=== PATIENT | female | born 1990 | race African-American/Black ===

== ENCOUNTER → 2022-05-22 08:02 | Outpatient (BNVA) | payer OTHER, SELFPAY | PROVIDERS: PCP Internal Medicine; Referring Provider Internal Medicine; Visit Provider Physician Assistant Surgical ==

== ENCOUNTER 2022-11-13 13:43 | Outpatient (AMB) | payer OTHER, SELFPAY ==
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
[2022-11-13 13:49] VITALS: BP 130/82; PULSE 87; BMI 37.8
== END 2022-11-13 14:47 | disposition home or self-care (01) ==
PROVIDERS: PCP Internal Medicine; Visit Provider Nurse Practitioner Family
DX: R51.9 Headache, unspecified (principal); Z82.49 Family history of ischemic heart disease and other diseases of the circulatory system; G43.009 Migraine without aura, not intractable, without status migrainosus
CPT/HCPCS: 99204

== ENCOUNTER → 2022-11-13 13:43 | Outpatient (BNVA) | payer OTHER, SELFPAY | PROVIDERS: PCP Internal Medicine; Visit Provider Nurse Practitioner Family ==

== ENCOUNTER 2023-01-10 08:19 | Outpatient (REF) | payer OTHER, SELFPAY ==
--- NOTE | ~2023-01-10 | MR_ITS ---
EXAMINATION: MR BRAIN WITHOUT AND WITH CONTRAST MR ANGIOGRAPHY HEAD WITHOUT CONTRAST CLINICAL INFORMATION: Headaches. COMPARISON: None. TECHNIQUE: Multiplanar, multisequence imaging of the brain was obtained without and with intravenous administration of contrast. 3-D [id number] MR angiography is performed. Multiple 3-D reformatted images are processed on the technologist workstation. Intravenous contrast: Gadavist 10 mL. FINDINGS: No diffusion abnormalities are identified to suggest an acute or subacute infarct. The ventricles are normal in size. No mass effect or midline shift is seen. No brain parenchymal signal abnormality is noted. No extra-axial fluid collections are seen. The brainstem and cerebellum are normal. On postcontrast imaging, there is no abnormal parenchymal or leptomeningeal enhancement. No pathologic magnetic susceptibility artifact is identified on the gradient refocused acquisition. The craniovertebral junction, marrow signal, and midline structures are normal. The major intracranial flow voids at the level of the [place] are preserved. The dural venous sinus flow voids are maintained. The mastoid air cells and paranasal sinuses are well aerated. MRA of the [place] demonstrates a normal caliber to the anterior and posterior circulation vasculature. No stenoses or occlusions are seen. No vascular malformation or aneurysms are identified. MR/MR head/brain wo/w con IMPRESSION: Normal MRI of the brain and MRA of the head.
--- NOTE | ~2023-01-10 | MR_ITS ---
EXAMINATION: MR BRAIN WITHOUT AND WITH CONTRAST MR ANGIOGRAPHY HEAD WITHOUT CONTRAST CLINICAL INFORMATION: Headaches. COMPARISON: None. TECHNIQUE: Multiplanar, multisequence imaging of the brain was obtained without and with intravenous administration of contrast. 3-D [id number] MR angiography is performed. Multiple 3-D reformatted images are processed on the technologist workstation. Intravenous contrast: Gadavist 10 mL. FINDINGS: No diffusion abnormalities are identified to suggest an acute or subacute infarct. The ventricles are normal in size. No mass effect or midline shift is seen. No brain parenchymal signal abnormality is noted. No extra-axial fluid collections are seen. The brainstem and cerebellum are normal. On postcontrast imaging, there is no abnormal parenchymal or leptomeningeal enhancement. No pathologic magnetic susceptibility artifact is identified on the gradient refocused acquisition. The craniovertebral junction, marrow signal, and midline structures are normal. The major intracranial flow voids at the level of the [place] are preserved. The dural venous sinus flow voids are maintained. The mastoid air cells and paranasal sinuses are well aerated. MRA of the [place] demonstrates a normal caliber to the anterior and posterior circulation vasculature. No stenoses or occlusions are seen. No vascular malformation or aneurysms are identified. MR/MR angio head wo con IMPRESSION: Normal MRI of the brain and MRA of the head.
[2023-01-10] MEDS: gadobutroL 10 ML VIAL IVPUSH (09:23)
== END 2023-01-10 08:20 | disposition home or self-care (01) ==
LOC: HO.MRI 08:19
PROVIDERS: PCP Internal Medicine; Visit Provider Nurse Practitioner Family
DX: R51.9 Headache, unspecified (principal); Z82.49 Family history of ischemic heart disease and other diseases of the circulatory system
CPT/HCPCS: 70544; 70553; A9585

== ENCOUNTER 2023-03-01 09:27 | Outpatient (AMB) | payer OTHER, SELFPAY ==
[2023-03-01 09:31] VITALS: BP 112/82; BMI 38.1
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
== END 2023-03-01 10:21 | disposition left against medical advice (07) ==
PROVIDERS: PCP Internal Medicine; Visit Provider Nurse Practitioner Family
DX: G43.009 Migraine without aura, not intractable, without status migrainosus (principal); Z82.49 Family history of ischemic heart disease and other diseases of the circulatory system
CPT/HCPCS: 99214

== ENCOUNTER → 2023-03-01 09:27 | Outpatient (BNVA) | payer OTHER, SELFPAY | PROVIDERS: PCP Internal Medicine; Visit Provider Nurse Practitioner Family ==

== ENCOUNTER 2023-06-05 10:02 | Outpatient (AMB) | payer OTHER, SELFPAY ==
--- NOTE | 2023-06-05 10:07 | MHC.OFFVIS ---
Intake Vital Signs 06/05/23 10:12 Height 5 ft 4 in Weight 215 lb 4 oz BMI 36.9 BP 120/80 Blood Pressure Location Rt brachial Position Sitting Pulse 64 Pulse Source Pulse Oximeter Pulse Oximetry (%) 98 Oxygen Delivery Method Room Air Intake Visit Reasons: 3- mo f/u -CONF Intake Note: Patient presents for 3 months F/U. Stoped Cyclobenzaprine and Sumatriptan. Made pt. feel nausea, light headed and dizzy. Allergies No Known Allergies Allergy (Verified 06/05/23 10:11) HPI HPI Comments History of Present Illness Details 33-yr-old female presents for f/u visit. Pt denies any significant interval medical changes. Pt reports she is having less headaches overall. Pt reports she has a headache every other week responsive to Tylenol. She is compliant w/ B2 and Mag. She has stopped coffee- which has helped, noticed that when she skipped taking an am coffee this would trigger a migraine/headache. She is continuing to try to lose weight- working out, does use a [employer] energy drink when she works out. No longer having an exertional headache. Baseline headache characteristics: Severe, usually left temporal, but can be right retroorbital. Pain can be pressure or throbbing a/w photophobia, phonophobia, nausea, vomiting at times. PFSH Surgical History H/O toe surgery Family History Father Aneurysm Paternal Grandmother Aneurysm Social History Alcohol intake: never Patient Tobacco Use Status: Never used Tobacco Physical Exam Vital Signs: Last Vital Signs Pulse 64 06/05/23 10:12 BP 120/80 06/05/23 10:12 Pulse Ox 98 06/05/23 10:12 Oxygen Delivery Method Room Air 06/05/23 10:12 BMI result Body Mass Index 36.9 Const General: cooperative and no acute distress Orientation/consciousness: patient oriented x3 Resp Effort & Inspection: normal respiratory effort and able to speak in complete sentences Neuro General: patient oriented x3 Cranial nerves: Yes CN's II-XII intact bilaterally Cognition (Neuro): normal cognition Psych Appearance: grossly normal Mental Status: mental status grossly normal Speech and movement: Normal speech and movement present Affect: normal affect Attitude: cooperative Assessment & Plan Assessment & Plan (1) Migraine without aura: Code(s): G43.009 - Migraine without aura, not intractable, without status migrainosus Plan Brain MRI w/wo and Brain MRA w/o- normal. Future considerations- HST ? For overall headache management: Continue to optimize good self-care, including but not limited to maintaining a healthy diet, adequate fluid intake, adequate sleep, and engaging in regular physical activity. Track headaches Monitor headache response to caffeine. ? For acute headache treatment: Tylenol prn. Pt would like to hold on trying an alternate triptan for now. Stop Sumatriptan 100mg- not tolerated. Stop Cyclobenzaprine 10mg prn- not tolerated. Previous acute migraine medication trials: Tylenol- not always effective Acute migraine medication contraindications: none at this time. ? For headache prevention medication: Continue Riboflavin 400mg qam Continue Magnesium 400mg qhs Previous migraine prevention medication trials: None Migraine prevention medication contraindications: None ? Pt to follow-up in 6 months or sooner prn. Coding Level of Care Code Est Pt Level 3 (70753) Diagnoses Migraine without aura G43.009
[2023-06-05 10:12] VITALS: BP 120/80; PULSE 64; O2SAT 98; BMI 36.9
== END 2023-06-05 11:03 | disposition home or self-care (01) ==
PROVIDERS: PCP Internal Medicine; Visit Provider Nurse Practitioner Family
DX: G43.009 Migraine without aura, not intractable, without status migrainosus (principal)
CPT/HCPCS: 99213

== ENCOUNTER → 2023-06-05 10:02 | Outpatient (BNVA) | payer OTHER, SELFPAY | PROVIDERS: PCP Internal Medicine; Visit Provider Nurse Practitioner Family | DX: G43.009 Migraine without aura, not intractable, without status migrainosus (principal) | CPT/HCPCS: 99212 ==

== ENCOUNTER 2023-12-05 09:44 | Outpatient (AMB) | payer OTHER, SELFPAY ==
[2023-12-05 09:46] VITALS: BMI 31.2
--- NOTE | 2023-12-05 09:46 | MHC.OFFVIS ---
Vital Signs 12/05/23 09:46 Height 5 ft 4 in Weight 182 lb BMI 31.2 Intake Visit Reasons: 6 mo f/u Intake Note: Patient presents for 6 month follow up. patients headaches are better no issues or concerns. Allergies No Known Allergies Allergy (Verified 12/05/23 09:48) Medication List - Last Reconciled 12/05/23 by JEROME Bell cyclobenzaprine 10 mg PO BEDTIME PRN 30 days magnesium oxide 400 mg PO BEDTIME 30 days riboflavin (vitamin B2) 400 mg PO DAILY 30 days sumatriptan succinate 50 - 100 mg orally at onset of headache, may repeat in 2 hrs PRN; max 2 tabs per day or 4 tabs/week (may take with Ibuprofen) 30 days HPI Comments Details: 33-yr-old female presents for f/u visit. Pt denies any significant interval medical changes. She is taking Wegovy for weight loss- working well, tolerating well. Pt reports she has had 1 severe migarine since the last visist. Has been having some headaches that she attributes to wegovy, responsive to Tylenol. She is ran out of B2 and Mag. She has stopped coffee- which has helped, noticed that when she skipped taking an am coffee this would trigger a migraine/headache. She continues to work out. Not having any exertional headache- though notes she is not exercising as strenuously as before. Baseline headache characteristics: Severe, usually left temporal, but can be right retroorbital. Pain can be pressure or throbbing a/w photophobia, phonophobia, nausea, vomiting at times. PFSH Surgical History H/O toe surgery Family History Father Aneurysm Paternal Grandmother Aneurysm Social History Alcohol intake: never Patient Tobacco Use Status: Never used Tobacco Physical Exam Vital Signs: BMI result Body Mass Index 31.2 Const General: cooperative and no acute distress Orientation/consciousness: patient oriented x3 Resp Effort & Inspection: normal respiratory effort and able to speak in complete sentences Neuro General: patient oriented x3 Cranial nerves: Yes CN's II-XII intact bilaterally Cognition (Neuro): normal cognition Psych Appearance: grossly normal Mental Status: mental status grossly normal Speech and movement: Normal speech and movement present Affect: normal affect Attitude: cooperative Assessment & Plan Assessment & Plan (1) Migraine without aura: Code(s): G43.009 - Migraine without aura, not intractable, without status migrainosus Category: Medical (2) Headache: Code(s): R51.9 - Headache, unspecified Category: Medical Plan Brain MRI w/wo and Brain MRA w/o- normal. Future considerations- HST ? For overall headache management: Continue to optimize good self-care, including but not limited to maintaining a healthy diet, adequate fluid intake, adequate sleep, and engaging in regular physical activity. Track headaches Monitor headache response to caffeine. ? For acute headache treatment: Tylenol prn. Trial Naraatriptan 2.5mg tab, 1/2 - 1 tab at onset of headache, may repeat in 4 hours. Max of 2 tabs per 24 hours. May adjunct with OTC Tylenol 650mg q 4 hours, Ibuprofen 600mg q 6 hours, or Naproxen 440mg q 12 hrs prn. Potential adverse effects of triptans, include but are not limited to nausea, fatigue, chest tightness/tingling (usually passes within a few minutes), medication overuse headaches. Stop Cyclobenzaprine 10mg prn- not tolerated. Previous acute migraine medication trials: Tylenol- not always effective. Sumatriptan 100mg- not tolerated. Acute migraine medication contraindications: none at this time. Future considerations: Gepant. ? For headache prevention medication: Continue Riboflavin 400mg qam Continue Magnesium 400mg qhs Previous migraine prevention medication trials: None Migraine prevention medication contraindications: None ? Pt to follow-up in 12 months or sooner prn. Medications: New naratriptan take 1/2 - 1 tab at onset of headache; if no relief may repeat 1 tab after at least 4 hrs; max = 2 tabs/24 hrs orally PRN; 30 days 12 tabs 6RF migraine headache naratriptan take 1/2 - 1 tab at onset of headache; if no relief may repeat 1 tab after at least 4 hrs; max = 2 tabs/24 hrs orally PRN; 30 days 12 tabs 6RF migraine headache acetaminophen (Tylenol Extra Strength) 1,000 mg (2 x 500 mg) PO Q6H 30 days PRN 240 tabs 1RF fever or pain Refilled magnesium oxide may hold for loose stools 400 mg PO BEDTIME 30 days 30 tabs 6RF riboflavin (vitamin B2) 400 mg PO DAILY 30 days 30 tabs 6RF Discontinued sumatriptan succinate Discontinued Reason: Doctor's Order (0.5 - 1 x 100 mg) 50 - 100 mg orally at onset of headache, may repeat in 2 hrs PRN; max 2 tabs per day or 4 tabs/week (may take with Ibuprofen) 30 days 12 tabs 6RF migraine headache cyclobenzaprine Discontinued Reason: Doctor's Order 10 mg PO BEDTIME 30 days PRN 30 tabs 1RF muscle spasm Coding Level of Care Code Est Pt Level 3 (13209) Diagnoses Migraine without aura G43.009 Headache R51.9
== END 2023-12-05 10:16 | disposition home or self-care (01) ==
PROVIDERS: PCP Internal Medicine; Visit Provider Nurse Practitioner Family
DX: G43.009 Migraine without aura, not intractable, without status migrainosus (principal); R51.9 Headache, unspecified
CPT/HCPCS: 99213

== ENCOUNTER → 2023-12-05 09:44 | Outpatient (BNVA) | payer OTHER, SELFPAY | PROVIDERS: PCP Internal Medicine; Visit Provider Nurse Practitioner Family | DX: G43.009 Migraine without aura, not intractable, without status migrainosus (principal) | CPT/HCPCS: 99212 ==